=== PATIENT | female | born 1970 | race Caucasian/White ===

== ENCOUNTER → 2016-05-08 | Outpatient (CLI) | payer OTHER ==
[~2016-05-08] MED LIST: AMT50 PO; ASPI81TA28 PO; CILO100T PO; CYAN100T PO; FLUO40CA8 PO; FURO-85 PO; IPRA1AER2 INH; LPR25 PO; NRN/300 PO; OXGN; POTA20TA16 PO; PRLSR20 PO; ROSU40TA PO; SPRIN/30 INH; SYMIN160 INH; TRAM-10 PO; WARF5TAB7 PO; [UNRECOGNIZED DRUG - SUPPLY]
[2016-05-08 08:21] LABS: PROTHROMBIN TIME (PATIENT) 10.7 SECONDS (9.0-12.0)
== END | disposition home or self-care (01) ==
LOC: C.LAB 07:51
PROVIDERS: ATTEND Anesthesiology
DX: Z01.812 Encounter for preprocedural laboratory examination (principal)

== ENCOUNTER → 2016-07-30 | Outpatient (CLI) | payer OTHER ==
[2016-07-30 10:22] LABS: PROTHROMBIN TIME (PATIENT) 10.6 SECONDS (9.0-12.0)
== END | disposition home or self-care (01) ==
LOC: C.LAB 09:53
PROVIDERS: ATTEND Anesthesiology
DX: Z01.812 Encounter for preprocedural laboratory examination (principal)

== ENCOUNTER → 2016-08-21 | Outpatient (CLI) | payer OTHER ==
[2016-08-21 13:47] LABS: PROTHROMBIN TIME (PATIENT) 10.7 SECONDS (9.0-12.0)
--- NOTE | 2016-08-21 15:33 | Pain Clinic Procedure Note ---
Pain Management Procedure Note Procedure Date Aug 21, 2016. Procedure Description Procedure Time Out: side/site verified, patient ID confirmed, correct procedure Consent Obtained: written Performed By: Dr. Luke Indications: diagnostic Contraindications: none ASA Class: 2 Description: L5 DORSAL RAMUS AND S1,S2 AND S3 LATERAL BRANCH BLOCKS Diagnosis: Inflammatory Sacroiliitis and Lumbago Levels injected: Bilateral L5 dorsal ramus medial branch, S1, S2, and S3 lateral branches Surgeon: Dr. Arnav Luke Prior to starting, the Patients diagnosis and the procedure were reviewed with the patient in detail. Possible risks, complications and alternative therapies were also reviewed. Patients questions were answered. Informed consent was obtained. Allergies and medication list was reviewed. The patient was brought to the fluoroscopy room and placed in prone position on the table. Immediately prior to starting the procedure, a time out was conducted with the staff and the patient where the patient was identified, proposed procedure was verified, consent was reviewed and the proper site for the planned procedure was identified. Fluoroscopy was utilized in performing the procedure to assist the placement of the needle, to evaluate the final position of the needle prior to injection and to avoid intravascular injection. Monitors used included intermittent blood pressure with automated device, continuous pulse oximetry and level of consciousness. Patient was not given any intravenous sedation and constant verbal contact was maintained throughout the procedure. Biplanar was utilized to assist in placement of the needle and to evaluate the final needle position prior to injection On examination, no signs of skin breakdown or infection was noted at the injection site. Lumbar-sacral area was prepped with duraprep and Betadine solution. Sterile drapes were applied. The appropriate S1 foramen was identified in A-P view. C-arm was then angled cephalad to obtain an ideal view of the sacral foramen. Skin and subcutaneous tissue was infiltrated with 1cc of 1% lidocaine-MPF. A 25 gauge 3.5 inch Quincke point spinal needle with approximately 15 degree curved tip was introduced through the skin and subcutaneous tissues and directed under fluoroscopic guidance so that the tip was placed in the sacral foramen to be used as marker needle for introducer placement. The needle position was checked in the lateral view and adjusted appropriately. Using similar technique, S2 and S3 foramina were identified and a 25 gauge spinal needle was placed through each foramina. Next a 3-1/2 Quincke spinal needle was placed approximately 1cm lateral to the midpoint of each foramen and . 1 cc of 0.5% Bupivacaine-MPF was injected after negative aspiration for blood or CSF. No paresthesia were noted. For the L5 dorsal ramus branch of the medial branch nerve, the skin and subcutaneous tissues were anesthetized with 1ml 1% Lidocaine. A 22 Gauge 3.5 inch curved (15 degrees) Quincke point spinal needle was inserted through the skin and subcutaneous tissues, after local anesthetic infiltration, and advanced in a co-axial manner to the fluoroscope beam. The needle was advanced and adjusted until the tip was located just above the junction of the transverse process and the superior articular process of the facet joint and seated on the bony margin. Patient did not experience pain, paresthesia nor were blood or CSF elicited. Needle position was verified in AP and lateral views. Next, 1 cc of 0.5% Bupivacaine-MPF was gradually injected via the needle. Patient did not experience any pain, paresthesia or discomfort throughout the injection period. The needles were then withdrawn. Adequate hemostasis was noted. A sterile Band-Aids were applied at the injection sites. Patient tolerated the procedure uneventfully. The patient was returned to the recovery area and observed for approximately 30 minutes. 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 Complications: none Patient Tolerated Procedure: well Post-procedure Vital Signs: reviewed and stable Discharge Instructions: reviewed & understood [employer] Voice Recognition; This chart was completed in part utilizing [employer] Voice Recognition Software. Random word insertions, pronoun errors, and incomplete sentences are an occasional consequence of this system due to software limitations and ambient noise. Any questions or concerns about the content, text or information contained within the body of this dictation should be directly addressed to the provider for clarification.
--- NOTE | 2016-09-16 14:31 | Pain Clinic Procedure Note ---
Pain Management Procedure Note Procedure Date Aug 21, 2016. Procedure Description Procedure: Right L5 dorsal ramus and S1, S2 and S3 lateral branch blocks. Procedure Time Out: side/site verified, patient ID confirmed, correct procedure Consent Obtained: written Performed By: Dr. Luke Contraindications: none ASA Class: 3 Description: L5 DORSAL RAMUS AND S1,S2 AND S3 LATERAL BRANCH BLOCKS Diagnosis: Inflammatory Sacroilitis and Lumbago Levels injected: Right L5 dorsal ramus medial branch, S1, S2, and S3 lateral branches Surgeon: Dr. Arnav Luke Prior to starting, the Patients diagnosis and the procedure were reviewed with the patient in detail. Possible risks, complications and alternative therapies were also reviewed. Patients questions were answered. Informed consent was obtained. Allergies and medication list was reviewed. The patient was brought to the fluoroscopy room and placed in prone position on the table. Immediately prior to starting the procedure, a time out was conducted with the staff and the patient where the patient was identified, proposed procedure was verified, consent was reviewed and the proper site for the planned procedure was identified. Fluoroscopy was utilized in performing the procedure to assist the placement of the needle, to evaluate the final position of the needle prior to injection and to avoid intravascular injection. Monitors used included intermittent blood pressure with automated device, continuous pulse oximetry and level of consciousness. Patient was not given any intravenous sedation and constant verbal contact was maintained throughout the procedure. Biplanar was utilized to assist in placement of the needle and to evaluate the final needle position prior to injection On examination, no signs of skin breakdown or infection was noted at the injection site. Lumbar-sacral area was prepped with duraprep and Betadine solution. Sterile drapes were applied. The appropriate S1 foramen was identified in A-P view. C-arm was then angled cephalad to obtain an ideal view of the sacral foramen. Skin and subcutaneous tissue was infiltrated with 1cc of 1% lidocaine-MPF. A 25 gauge 3.5 inch Quincke point spinal needle with approximately 15 degree curved tip was introduced through the skin and subcutaneous tissues and directed under fluoroscopic guidance so that the tip was placed in the sacral foramen to be used as marker needle for introducer placement. The needle position was checked in the lateral view and adjusted appropriately. Using similar technique, S2 and S3 foramina were identified and a 25 gauge spinal needle was placed through each foramina. Next a 3-1/2 Quincke spinal needle was placed approximately 1cm lateral to the midpoint of each foramen and . 1 cc of 0.5% Bupivacaine-MPF was injected after negative aspiration for blood or CSF. No paresthesia were noted. For the L5 dorsal ramus branch of the medial branch nerve, the skin and subcutaneous tissues were anesthetized with 1ml 1% Lidocaine. A 22 Gauge 3.5 inch curved (15 degrees) Quincke point spinal needle was inserted through the skin and subcutaneous tissues, after local anesthetic infiltration, and advanced in a co-axial manner to the fluoroscope beam. The needle was advanced and adjusted until the tip was located just above the junction of the transverse process and the superior articular process of the facet joint and seated on the bony margin. Patient did not experience pain, paresthesia nor were blood or CSF elicited. Needle position was verified in AP and lateral views. Next, 1 cc of 0.5% Bupivacaine-MPF was gradually injected via the needle. Patient did not experience any pain, paresthesia or discomfort throughout the injection period. The needles were then withdrawn. Adequate hemostasis was noted. A sterile Band-Aids were applied at the injection sites. Patient tolerated the procedure uneventfully. The patient was returned to the recovery area and observed for approximately 30 minutes. 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 Complications: none Patient Tolerated Procedure: well Post-procedure Vital Signs: reviewed and stable Discharge Instructions: reviewed & understood [employer] Voice Recognition; This chart was completed in part utilizing [employer] Voice Recognition Software. Random word insertions, pronoun errors, and incomplete sentences are an occasional consequence of this system due to software limitations and ambient noise. Any questions or concerns about the content, text or information contained within the body of this dictation should be directly addressed to the provider for clarification.
== END | disposition home or self-care (01) ==
LOC: C.LAB 13:04
PROVIDERS: ATTEND Anesthesiology
DX: Z01.812 Encounter for preprocedural laboratory examination (principal)

== ENCOUNTER → 2016-11-05 | Outpatient (CLI) | payer OTHER ==
[~2016-11-05] MED LIST changes: -ASPI81TA28 PO; -OXGN
[2016-11-05 07:10] LABS: PROTHROMBIN TIME (PATIENT) 10.7 SECONDS (9.0-12.0)
== END | disposition home or self-care (01) ==
LOC: C.LAB 06:32
PROVIDERS: ATTEND Physician Assistant
DX: Z01.812 Encounter for preprocedural laboratory examination (principal); Z51.81 Encounter for therapeutic drug level monitoring